=== PATIENT | female | born 1955 | race Caucasian/White ===

== ENCOUNTER → 2021-12-08 | Outpatient (CLI) | payer MEDICARE, OTHER | LOC: KOH-I 15:39 | DX: U07.1 COVID-19 (principal); B97.21 SARS-associated coronavirus as the cause of diseases classified elsewhere | CPT/HCPCS: 71046 ==

== ENCOUNTER → 2021-12-09 | Outpatient (CLI) | payer MEDICARE, OTHER ==
[~2021-12-09] VITALS: Ht 167.6 cm; Wt 106.6 kg
== END ==
LOC: EROP 11:54
DX: U07.1 COVID-19 (principal); Z23 Encounter for immunization; J45.909 Unspecified asthma, uncomplicated; E11.9 Type 2 diabetes mellitus without complications; I10 Essential (primary) hypertension
CPT/HCPCS: M0247; Q0247

== ENCOUNTER → 2022-01-24 | Outpatient (CLI) | payer MEDICARE, OTHER | LOC: KOH-I 15:24 | DX: B97.21 SARS-associated coronavirus as the cause of diseases classified elsewhere (principal) | CPT/HCPCS: 71046 ==

== ENCOUNTER → 2022-04-22 | Outpatient (CLI) | payer MEDICARE, OTHER | LOC: KOH-I 15:01 | DX: R05.3 Chronic cough (principal) | CPT/HCPCS: 71046 ==

== ENCOUNTER → 2022-05-04 | Outpatient (CLI) | payer MEDICARE, OTHER | LOC: KOH-I 05-02 14:45 | DX: R09.89 Other specified symptoms and signs involving the circulatory and respiratory systems (principal) | CPT/HCPCS: 76536 ==

== ENCOUNTER → 2022-05-05 | Outpatient (CLI) | payer MEDICARE, OTHER | LOC: HEART 5 15:25 | DX: R05.3 Chronic cough (principal); R06.02 Shortness of breath | CPT/HCPCS: 94010; 94729 ==